=== PATIENT | male | born 1985 | race Caucasian/White ===

== ENCOUNTER 2021-01-01 18:39 | Emergency (ER) | payer OTHER ==
[~2021-01-01] VITALS: Ht 175.3 cm; Wt 77.0 kg
[2021-01-01 18:42] VITALS: BP 131/90
== END 2021-01-01 23:10 | disposition left against medical advice (07) ==
LOC: ER 18:39
DX: M79.602 Pain in left arm (principal); M79.601 Pain in right arm
CPT/HCPCS: 99281